=== PATIENT | male | born 1955 | race Caucasian/White ===

== ENCOUNTER 2016-06-24 21:40 | Inpatient (IN) | payer OTHER ==
[~2016-06-24] VITALS: Ht 177.8 cm; Wt 88.3 kg
--- NOTE | ~2016-06-24 | HP ---
PATIENT'S NAME: COLE SHINE [facility] AGE: 60 Y [address] ROOM: [id number] [place], [place] [address] LOCATION: GPED ADMIT DATE: 06/24/2016 History & Physical DISCHARGE DATE: FAMILY PHYSICIAN: Man Gastelum MD ATTENDING PHYSICIAN: JONATHAN BARKLEY DATE OF SERVICE: CHIEF COMPLAINT: Jaundice. HISTORY OF PRESENT ILLNESS: This is a 60-year-old male with a history of diabetes, dyslipidemia, hypothyroidism who was transferred from [facility] after the ED doctor discussed the case with Dr. Owens who accepted the patient to be transferred over. History was obtained from the patient. He reported that around 4 or 5 days ago that he had some URI symptoms; and also in association with this, he also adds his urine was pretty concentrated, appeared dark, also with passage of pale-colored stool, which he reports that it kind of floated in the toilet bowl. He reports that he attributed all this symptoms to his URI symptoms; however, after his URI symptom had resolved, his symptoms of dark-colored urine as well as pale-stool still continued; and this morning, he observed that the skin of his upper chest wall as well as his eyes appeared yellow and so he made a call into his PCP whose Nurse Practitioner recommended for the patient to go into the emergency room; and at [facility], he was evaluated, and had an ultrasound done, which was reported as acalculous cholecystitis and case was discussed with Dr. Owens possibly that the patient may have a distal common bile duct stone and needed to be evaluated with an ERCP. The patient noted that in association to his URI symptoms that he had some generalized mild headache with joint pains. He usually he does not get flu shots and he never had one last year nor this year. He also notes loss of appetite. Denies diarrhea. Denies urinary symptoms. Denies abdominal pain. Denies vomiting. Denies any fever. He reports that since the onset of these symptoms that his usually checks his temperature at home and the highest that he has obtained is 99. While at [facility], the patient also did receive one dose of Zosyn. REVIEW OF SYSTEMS: The 13 elements of review of systems were asked and as documented in the HPI. The others are negative. PAST MEDICAL HISTORY: Includes diabetes type 2, BPH, dyslipidemia, and hypothyroidism. PAST SURGICAL HISTORY: PATIENT'S NAME: COLE SHINE [facility] AGE: 60 Y [address] ROOM: [address] [place], [place] [address] LOCATION: GPED ADMIT DATE: 06/24/2016 History & Physical DISCHARGE DATE: FAMILY PHYSICIAN: Man Gastelum MD ATTENDING PHYSICIAN: JONATHAN BARKLEY None. SOCIAL HISTORY: Lives with his . Drinks 1-2 shots of whiskey twice a week, last was sometime this week Monday or Monday. Denies smoking. FAMILY HISTORY: Both parents are alive, father is 95 has some dementia, and mother is 85 has hypertension. PHYSICAL EXAMINATION: VITAL SIGNS: Temperature 99.3, pulse 88, respiratory rate 16, blood pressure 148/75, and oxygen saturation 97% on room air. GENERAL: Reveals a male who is alert, awake, oriented x3 not in any form of respiratory distress or painful distress. NEUROLOGIC: Cranial nerves 2 through 12 are intact bilaterally. Sensory is intact bilaterally. Power is 5/5 in all the extremities. HEENT: Normocephalic, atraumatic. Pupils equal and reactive to light bilaterally. He has got an icteric sclerae. EARS: There is no discharge or drainage. NECK: Supple. No area of tenderness. No lymphadenopathy. CARDIOVASCULAR: Normal S1, S2. Regular rate and rhythm. CHEST: Clear to auscultation bilaterally. ABDOMEN: Soft, nondistended, no area of tenderness. No palpable organomegaly. Positive bowel sounds. EXTREMITIES: There is no joint swelling, erythema, or tenderness. SKIN: Upper chest wall skin appears to be slightly icteric. LABORATORY DATA: Labs done at [facility] glucose 133, BUN 15, creatinine 0.8, alk phos is 273, ALT 278, AST 210, total bili is 5.8, total protein 7.9, and albumin is 3.5. WBC 5.4, H and H 15.1/47, and platelets 201. ASSESSMENT AND PLAN: This is a 60-year-old male with jaundice: 1. Possibly obstructive jaundice, possibly from common bile duct stone. We will keep the patient n.p.o. We will get an MRCP in the morning. I will also get a GI consult who may possibly do an ERCP tomorrow. Note present on admission. 2. Acalculous cholecystitis, present on admission. This was on ultrasound. We will do blood cultures x1 set. Even though the patient has received one dose of Zosyn, we will continue the patient on Zosyn here. 3. Diabetes type 2 with hyperglycemia. We will hold the patient's metformin for now. We will put him on a mild sliding scale of NovoLog. 4. Elevated transaminases, present on admission, possibly from obstructive PATIENT'S NAME: COLE SHINE [facility] AGE: 60 Y [address] ROOM: [place] [address] LOCATION: [facility] ADMIT DATE: 06/24/2016 History & Physical DISCHARGE DATE: FAMILY PHYSICIAN: Man Gastelum MD ATTENDING PHYSICIAN: JONATHAN BARKLEY jaundice, we will continue to monitor. 5. Benign prostatic hypertrophy, present on admission, we will continue the patient on his Flomax. 6. Hypothyroidism, present on admission, we will continue the patient on his medication. 7. Dyslipidemia, present, continue the patient on his medication. The line of management was explained to the patient who did not have any questions at this time. JONATHAN BARKLEY MD ODO/flol /[id number] D: [id number] T: [id number] HISTORY & PHYSICAL
--- NOTE | ~2016-06-24 | HP ---
PATIENT'S NAME: COLE SHINE [facility] AGE: 60 Y [address] ROOM: [address] [address] LOCATION: GPED ADMIT DATE: 06/24/2016 History & Physical DISCHARGE DATE: FAMILY PHYSICIAN: Man Gastelum MD ATTENDING PHYSICIAN: JONATHAN BARKLEY DATE OF SERVICE: ADDENDUM: ASSESSMENT AND PLAN: Morbid obesity. We will recommend some lifestyle modification. MD HOSSEIN SCOTT/flol /[id number] D: [id number] T: [id number] HISTORY & PHYSICAL
--- NOTE | ~2016-06-24 | DS ---
PATIENT'S NAME: COLE SHINE [facility] AGE: 60 Y [address] ROOM: [place] [address] LOCATION: GPED ADMIT DATE: 06/24/2016 Discharge Summary DISCHARGE DATE: 06/29/2016 FAMILY PHYSICIAN: Man Gastelum MD ATTENDING PHYSICIAN: Frieda Hanson CONSULTING PHYSICIAN:: Dr. Owens, Gastroenterology. DISCHARGE DIAGNOSES: 1. Cholestatic jaundice. 2. Acalculous cholecystitis. 3. Transaminitis. 4. Generalized pruritus. 5. Diabetes mellitus, type 2. 6. History of benign prostatic hypertrophy. 7. Dyslipidemia. DISCHARGE MEDICATIONS: 1. Levothyroxine 50 mcg p.o. q.a.m. 2. Flomax 0.5 mg p.o. daily. 3. Metformin 1000 mg p.o. b.i.d. MEDICINES HELD: Zocor 10 mg p.o. daily. PROCEDURES PERFORMED: 1. ERCP endoscopic retrograde cholangiopancreatography on 06/25/[address] Owens[address] 2[address]-guided liver biopsy on 06/28/[address] Pineda. PERTINENT LABORATORY DATA: Total bilirubin on June 25 was 5.8. This trended downward on the day of discharge of 3.8. Alkaline phosphatase upon admission was 257, this umesh to 334 on June 28; on day of discharge was 321. AST on admission was 188, this umesh to 195 on June 27, and was 142 on the day of discharge. ALT was 230 on the day of admission, which did drop to the whitney of 179 on the day of dismissal on June 29. Hemoglobin A1c on June 25 was 6.3. Lipid panel showed a cholesterol of 171, triglycerides elevated at 224, HDL of 14, VLDL of 44, and LDL of 113. PATIENT'S NAME: COLE SHINE [facility] AGE: 60 Y [address] ROOM: [place] [address] LOCATION: GPED ADMIT DATE: 06/24/2016 Discharge Summary DISCHARGE DATE: 06/29/2016 FAMILY PHYSICIAN: Man Gastelum MD ATTENDING PHYSICIAN: Frieda Hanson CBCs complete blood count during the hospitalization were unremarkable. The patient did have quite a few sending out labs done including HCV, which was unreactive. HBS antigen screen was non-reactive. ASMA was negative. Ceruloplasmin of 25 mg/dL. Copper of 109 ug/dL. Mitochondrial antibody was negative. Pathology report from the common bile duct brushings showed no malignant cells present. A CT-guided biopsy of the liver remains pending at the time of discharge. HOSPITAL COURSE: Please refer to the admitting H and P history and physical for detailed outline of the patient's presentation. The patient was admitted, and GI was consulted with plans for an ERCP endoscopic retrograde cholangiopancreatography. This was done on 06/25/[address] Owens. Please refer to the operative note. They noted a small normal common bile duct and biliary tree. They did a sphincterotomy with balloon sweep and brushings along with cytology. A stent was placed in successfully in the common bile duct. At that point, there was no obvious obstruction. Continued workup for hepatitis was continued. The sent out labs were obtained. The patient continued to have transaminitis. A CT scan was obtained on the 26 of June. It showed enlarged and fatty infiltrated liver. No focal lesions. Noted a common bile duct stent in place. Bile ducts were non-dilated. No note of pancreatitis. There was non- obstructive bowel noted with mild sigmoid diverticulitis. The patient was symptomatic with pruritus, given his elevated bilirubin. The patient did have scleral icterus and jaundiced skin. This improved slowly as the bilirubin improved. Cholestyramine was initiated on 06/26/2016. The patient was also covered during this time with Zosyn I should know. The patient remained afebrile. Blood cultures were negative. Given the continued elevated liver enzymes, and in fact, increasing alkaline phosphatase, ultimately, it was decided to pursue the CT-guided liver biopsy. During this time, it was brought to our attention that the patient was indeed taking a supplement given to him by his chiropractor. This was supposed to be for a detoxifying regimen. It included Super artemisinin 180 mg two capsules daily along with nattokinase 100 mg two capsules daily, along with Lyme Nosode spray, and also to do frequency on a TENS machine for liver detoxification. PATIENT'S NAME: COLE SHINE [facility] AGE: 60 Y [address] ROOM: [address] [address] LOCATION: GPED ADMIT DATE: 06/24/2016 Discharge Summary DISCHARGE DATE: 06/29/2016 FAMILY PHYSICIAN: Man Gastelum MD ATTENDING PHYSICIAN: Frieda Hanson The patient tolerated the CT-guided liver biopsy again, results of which are pending at the time of this dictation. The patient was feeling better, and had really no abdominal pain with eating. We continued to monitor LFTs liver function tests. Ultimately, on 06/29/2016, we did have a drop in the alkaline phosphatase along with AST and ALT, and total bilirubin had come down to 3.8. We felt it was reasonable for the patient to discharge home and to follow up with Gastroenterology concerning the outstanding or the pending results. DISCHARGE INSTRUCTIONS: The patient was counseled extensively to avoid any supplements. Told this was definitely considered an offending agent when looking at the big picture as to what was the cause of his transaminitis. I did tell him to hold his Lipitor until following up with the Gastroenterology team, and that his enzymes had trended back into normal levels. The patient voiced understanding of the discharge instructions including adhering to a diabetic diet, to resume his metformin, but hold on his Zocor at the time. DISCHARGE FOLLOWUP: He is to follow up with the [facility] within ten days including pathology report and to draw LFTs liver function tests and monitor for resolution of the transaminitis. Discharge of this patient took less than 35 minutes. Thank you for allowing us to help care for this patient. VERONICA PRADHAN PA-C FOR MD ANA LUISA BANERJEE/ty /[id number] CC: MD Kwadwo Mccann MD d: 06/30/16 0509 t: 07/13/16 1642, DISCHARGE SUMMARY
--- NOTE | ~2016-06-24 | CON ---
PATIENT'S NAME: COLE SHINE [facility] AGE: 60 Y [address] ROOM: [place] [address] LOCATION: GPED ADMIT DATE: 06/24/2016 Consultation DISCHARGE DATE: FAMILY PHYSICIAN: Man Gastelum MD ATTENDING PHYSICIAN: JONATHAN BARKLEY HISTORY OF PRESENT ILLNESS: This is a 60-year-old male who was seen in consultation for evaluation of jaundice and gallstone disease. Dr. Franklin called me from [facility] and requested for transfer of this patient for history of jaundice, abdominal pain, and gallstones with evidence of cholecystitis, swelling of gallbladder wall on ultrasound and jaundice with a bilirubin of close to 5. He has been having upper abdominal pain, bloating, and distention for the last 1 week. He also had upper respiratory tract infection symptoms. His urine has been dark and pale-colored stools. PAST MEDICAL HISTORY: Diabetes mellitus type 2, BPH, dyslipidemia, and hypothyroidism. PAST SURGICAL HISTORY: None. SOCIAL HISTORY: The patient drinks 1 to 2 drinks twice a week. Denies smoking. FAMILY HISTORY: Father has dementia and mother has hypertension, they are 95 and 85 respectively. REVIEW OF SYSTEMS: A 10-point review of system was negative other than mentioned above. MEDICATIONS: His medications include simvastatin, insulin, levothyroxine, piperacillin. Heparin was given last dose was 12 o'clock at night, glucagon. PHYSICAL EXAMINATION: GENERAL: Revealed a well-developed male, who is not in acute discomfort. VITAL SIGNS: Blood pressure is 148/75, weight is 88.35 kg, pulse is 88 per minute, respiration is 16 per minute, and temperature is 99.3 degrees Fahrenheit. HEAD: Normocephalic, atraumatic. NECK: Supple. No lymphadenopathy. JVP is not elevated. CHEST: Clear to palpation, percussion, and auscultation. CARDIAC: Both heart sounds normal. No S3 or murmur. ABDOMEN: Soft. It is nontender. No hepatosplenomegaly. No ascites. Bowel PATIENT'S NAME: COLE SHINE [facility] AGE: 60 Y [address] ROOM: [address] [address] LOCATION: GPED ADMIT DATE: 06/24/2016 Consultation DISCHARGE DATE: FAMILY PHYSICIAN: Man Gastelum MD ATTENDING PHYSICIAN: JONATHAN BARKLEY sounds are active. GENITOURINARY: There is no hypogastric tenderness, bladder is not full. MUSCULOSKELETAL: He moves all extremities without any difficulty. There is no restrictive joint disease. NEUROLOGIC: Cranial 2 through 12 intact. Motor sensory system intact. LABORATORY DATA: Shows WBC count of 4, hemoglobin is 13.4, and platelets are 173. He did not have PT/INR, which will be drawn this morning. His electrolytes were normal. Glucose 127, calcium 7.7, and albumin 2.9. Alkaline phosphatase 257, AST 188, ALT 230, total bilirubin is 4.9. Hemoglobin A1c is 6.3, TSH is 4.3. ASSESSMENT: This gentleman has cholecystitis with edema of the gallbladder wall with gallstones. He also has jaundice with elevation of ALT, AST, and alkaline phosphatase all suggestive of obstructive jaundice. CBD is also dilated on ultrasound. RECOMMENDATION: My recommendation would be to go ahead and proceed with ERCP for evaluation of his obstructive jaundice and possible sphincterotomy with stone extraction and stent placement and if needed do a cytology. We appreciate sharing care of this patient. Risk and benefits were done and the patient agrees for the above procedures. MD JOHN NESBITT/ty /[id number] d: 06/25/16 1016 t: 07/02/16 1148, CONSULTATION REPORT
[2016-06-24] MEDS ORDERED: LEVOTHROID (SY50 MCG PO (22:49)
[2016-06-24] MEDS ORDERED: GLUCOPHAGE1000 MG PO (22:49)
[2016-06-24] MEDS ORDERED: ZOCOR10 MG PO (22:50)
[2016-06-24] MEDS ORDERED: FLOMAX0.4 MG PO (22:51)
[2016-06-25 05:22] LABS: BASOPHIL % 0.7 %; EOSINOPHIL # 0.3 K/uL (0.0-0.5); EOSINOPHIL % 6.5 %; HEMATOCRIT 41.1 % (37.0-53.0); HEMOGLOBIN 13.4 g/dL (12.0-17.0); IMMATURE GRANULOCYTE % 0.2 %; LYMPHOCYTE % 24.3 %; MCH 28.9 pg (27.0-34.0); MCHC 32.6 gm/dL (32.0-36.5); MCV 88.8 fl (83.0-98.0); MONOCYTE # 0.4 K/uL (0.0-1.0); MONOCYTE % 10.4 %; MPV 9.9 fl (9.4-12.4); NEUTROPHIL # (ANC) 2.3 K/uL (1.4-9.0); NEUTROPHIL % 57.9 %; NRBC % 0 /100WBC (0-0.00); PLATELET COUNT 173 K/uL (150-450); RBC 4.63 M/uL (4.00-6.00); RDW-CV 13.9 % (11.9-14.6)
[2016-06-25 05:47] LABS: ALBUMIN 2.9 gm/dL (3.5-5.0); ALK PHOS 257 IU/L (33-138); ALT 230 IU/L (12-78); ANION GAP 14.2 (10.0-19.0); AST 188 IU/L (10-40); BLOOD UREA NITROGEN 11 mg/dL (6-24); CALCIUM 7.7 mg/dL (8.5-10.5); CHLORIDE 102 mMol/L (96-110); CO2 26 mMol/L (22-32); CREATININE 0.9 mg/dL (0.6-1.3); ESTIMATED GFR (MDRD EQUATION) > 60; MAGNESIUM 1.9 mg/dL (1.3-2.6); PHOSPHORUS 3.1 mg/dL (2.5-4.9); POTASSIUM 4.2 mMol/L (3.7-5.1); SODIUM 138 mMol/L (135-145); TOTAL BILIRUBIN 4.9 mg/dL (0.0-1.5); TOTAL PROTEIN 6.7 g/dL (6.0-8.4)
[2016-06-25 09:14] LABS: PROTIME 10.1 SECONDS (9.6-11.1)
[2016-06-25 14:55] LABS: ESTIMATED GFR (MDRD EQUATION) > 60; TOTAL BILIRUBIN 5.8 mg/dL (0.0-1.5)
[2016-06-26 05:48] LABS: BASOPHIL % 0.5 %; EOSINOPHIL # 0.3 K/uL (0.0-0.5); EOSINOPHIL % 8.1 %; HEMATOCRIT 41.1 % (37.0-53.0); HEMOGLOBIN 13.2 g/dL (12.0-17.0); IMMATURE GRANULOCYTE % 0.3 %; LYMPHOCYTE % 25.8 %; MCH 28.9 pg (27.0-34.0); MCHC 32.1 gm/dL (32.0-36.5); MCV 89.9 fl (83.0-98.0); MONOCYTE # 0.4 K/uL (0.0-1.0); MONOCYTE % 10.2 %; MPV 10.1 fl (9.4-12.4); NEUTROPHIL # (ANC) 2.1 K/uL (1.4-9.0); NEUTROPHIL % 55.1 %; NRBC % 0 /100WBC (0-0.00); PLATELET COUNT 154 K/uL (150-450); RBC 4.57 M/uL (4.00-6.00); RDW-CV 13.9 % (11.9-14.6); WBC 3.7 K/uL (4.0-11.0)
[2016-06-26 06:04] LABS: ALBUMIN 2.7 gm/dL (3.5-5.0); ALK PHOS 269 IU/L (33-138); ALT 214 IU/L (12-78); ANION GAP 11.3 (10.0-19.0); AST 188 IU/L (10-40); BLOOD UREA NITROGEN 10 mg/dL (6-24); CALCIUM 7.6 mg/dL (8.5-10.5); CHLORIDE 105 mMol/L (96-110); CO2 28 mMol/L (22-32); CREATININE 0.8 mg/dL (0.6-1.3); POTASSIUM 4.3 mMol/L (3.7-5.1); SODIUM 140 mMol/L (135-145); TOTAL BILIRUBIN 5.5 mg/dL (0.0-1.5); TOTAL PROTEIN 6.5 g/dL (6.0-8.4)
[2016-06-26 06:06] LABS: ESTIMATED GFR (MDRD EQUATION) > 60
[2016-06-27 06:31] LABS: BASOPHIL % 0.6 %; EOSINOPHIL # 0.2 K/uL (0.0-0.5); EOSINOPHIL % 4.6 %; HEMATOCRIT 41.9 % (37.0-53.0); HEMOGLOBIN 13.6 g/dL (12.0-17.0); IMMATURE GRANULOCYTE % 0.4 %; LYMPHOCYTE # 1.2 K/uL (0.8-4.0); LYMPHOCYTE % 23.6 %; MCH 28.9 pg (27.0-34.0); MCHC 32.5 gm/dL (32.0-36.5); MCV 89.1 fl (83.0-98.0); MONOCYTE # 0.5 K/uL (0.0-1.0); MONOCYTE % 10.7 %; MPV 10.6 fl (9.4-12.4); NEUTROPHIL % 60.1 %; NRBC % 0 /100WBC (0-0.00); PLATELET COUNT 174 K/uL (150-450); RDW-CV 14.1 % (11.9-14.6)
[2016-06-27 06:43] LABS: ALBUMIN 2.8 gm/dL (3.5-5.0); ALK PHOS 304 IU/L (33-138); ALT 221 IU/L (12-78); ANION GAP 14.1 (10.0-19.0); AST 195 IU/L (10-40); BLOOD UREA NITROGEN 6 mg/dL (6-24); CALCIUM 8.1 mg/dL (8.5-10.5); CHLORIDE 102 mMol/L (96-110); CO2 25 mMol/L (22-32); CREATININE 0.8 mg/dL (0.6-1.3); ESTIMATED GFR (MDRD EQUATION) > 60; POTASSIUM 4.1 mMol/L (3.7-5.1); SODIUM 137 mMol/L (135-145); TOTAL BILIRUBIN 5.4 mg/dL (0.0-1.5); TOTAL PROTEIN 6.9 g/dL (6.0-8.4)
[2016-06-28 06:29] LABS: ALBUMIN 2.7 gm/dL (3.5-5.0); ALK PHOS 334 IU/L (33-138); ALT 218 IU/L (12-78); ANION GAP 11.6 (10.0-19.0); AST 194 IU/L (10-40); BLOOD UREA NITROGEN 9 mg/dL (6-24); CALCIUM 8.4 mg/dL (8.5-10.5); CHLORIDE 102 mMol/L (96-110); CO2 26 mMol/L (22-32); CREATININE 0.8 mg/dL (0.6-1.3); ESTIMATED GFR (MDRD EQUATION) > 60; POTASSIUM 4.6 mMol/L (3.7-5.1); SODIUM 135 mMol/L (135-145); TOTAL BILIRUBIN 4.8 mg/dL (0.0-1.5); TOTAL PROTEIN 7.3 g/dL (6.0-8.4)
[2016-06-28 16:14] LABS: CERULOPLASMIN 25 mg/dL (7-220)
[2016-06-29 07:14] LABS: ALBUMIN 2.6 gm/dL (3.5-5.0); ALK PHOS 321 IU/L (33-138); ALT 179 IU/L (12-78); ANION GAP 12.6 (10.0-19.0); AST 142 IU/L (10-40); BLOOD UREA NITROGEN 12 mg/dL (6-24); CALCIUM 8.2 mg/dL (8.5-10.5); CHLORIDE 103 mMol/L (96-110); CO2 27 mMol/L (22-32); CREATININE 0.8 mg/dL (0.6-1.3); ESTIMATED GFR (MDRD EQUATION) > 60; POTASSIUM 4.6 mMol/L (3.7-5.1); SODIUM 138 mMol/L (135-145); TOTAL PROTEIN 7.2 g/dL (6.0-8.4)
[2016-06-29 07:17] LABS: TOTAL BILIRUBIN 3.8 mg/dL (0.0-1.5)
[2016-06-29] MEDS ORDERED: MIRALAX17 GM PO (13:36)
== END 2016-06-29 14:00 | disposition disaster alternative care site (69) | DRG 443 ==
LOC: G3N 21:40 → GPED 22:22
PROVIDERS: Internal Medicine; Internal Medicine Adolescent Medicine; Physician Assistant; Student in an Organized Health Care Education/Training Program; ADMIT Hospitalist
PROC: 0F798DZ Dilation of Common Bile Duct with Intraluminal Device, Via Natural or Artificial Opening Endoscopic (ICD-10-PCS; principal; 2016-06-25)
PROC: 0FB03ZX Excision of Liver, Percutaneous Approach, Diagnostic (ICD-10-PCS; 2016-06-28)
DX: R17 Unspecified jaundice (principal); E11.65 Type 2 diabetes mellitus with hyperglycemia; K76.0 Fatty (change of) liver, not elsewhere classified; N40.0 Benign prostatic hyperplasia without lower urinary tract symptoms; E78.5 Hyperlipidemia, unspecified; E03.9 Hypothyroidism, unspecified; L29.9 Pruritus, unspecified; K81.9 Cholecystitis, unspecified; R74.8 Abnormal levels of other serum enzymes; E66.01 Morbid (severe) obesity due to excess calories
CPT/HCPCS: C1769; J1610; J1644; J2543; J3010; J7030; Q9967

== ENCOUNTER → 2016-07-25 | Day surgery (SDC) | payer OTHER ==
[~2016-07-25] VITALS: Ht 177.8 cm; Wt 89.3 kg
[~2016-07-25] MED LIST: FLOMAX0.4 MG PO; GLUCOPHAGE1000 MG PO; LEVOTHROID (SY50 MCG PO; MIRALAX17 GM PO; ZOCOR10 MG PO
== END | disposition disaster alternative care site (69) ==
LOC: GPOC 07-20 16:00 → GEND 08:58
PROC: 0DC98ZZ Extirpation of Matter from Duodenum, Via Natural or Artificial Opening Endoscopic (ICD-10-PCS; principal; 2016-07-25)
DX: Z46.89 Encounter for fitting and adjustment of other specified devices (principal)
CPT/HCPCS: J2001; J7030